=== PATIENT | female | born 1990 | race Caucasian/White ===

== ENCOUNTER → 2019-10-27 10:04 | Observation (INO) ==
[2019-10-27 08:20] LABS: Amphetamine Screen,Urine Negative ng/mL (Cutoff=1000); Barbiturate Screen,Urine Negative ng/mL (Cutoff=200); Benzodiazepines Screen,Urine Negative ng/mL (Cutoff=200); Cannabinoid Screen,Urine Negative ng/mL (Cutoff = 50); Cocaine Screen,Urine Negative ng/mL (Cutoff= 300); Opiate Screen,Urine Negative ng/mL (Cutoff=300); Phencyclidine Screen,Urine Negative ng/mL (Cutoff=25)
== END | disposition home or self-care (01) ==
LOC: 1NENULAB
PROVIDERS: ADMIT Advanced Practice Midwife; ATTEND Advanced Practice Midwife

== ENCOUNTER 2019-11-07 12:00 | Inpatient (IN) ==
[2019-11-07] MEDS ORDERED: Ondansetron 4 MG/2 ML VIAL IVP PRN (12:08)
[2019-11-07] MEDS ORDERED: Naloxone 0.4 MG/ML INJ IVP PRN (12:08)
[2019-11-07] MEDS ORDERED: Famotidine 20 MG/2 ML VIAL IVP PRN (12:08)
[2019-11-07] MEDS ORDERED: Metoclopramide 10 MG/2 ML VIAL IVP PRN (12:08)
[2019-11-07] MEDS ORDERED: Penicillin G Potassium 5,000,000 UNIT in 0.9 % Sodium Chloride Mini Bag 100 ML IVPB ONE (12:18)
[2019-11-07] MEDS: miSOPROStoL 25 MCG TABLET PO SCH (13:54)
[2019-11-07] MEDS: Ringers Solution, Lactated 1,000 ML IVC SCH ×2 (13:55→22:26)
[2019-11-07 14:06] LABS: Basophils % 0.3 %; Eosinophils # 0.2 K/mcL (0.0-0.6); Eosinophils % 1.8 %; Hematocrit 33.7 % (35.3-44.9); Hemoglobin 11.1 g/dL (11.5-15.4); Immature Granulocytes % 0.6 % (0-4); Lymphocytes # 1.6 K/mcL (0.6-4.6); Lymphocytes % 17.9 %; Mean Corpuscular HGB Conc 32.9 g/dL (31.6-35.5); Mean Corpuscular Hemoglobin 29.3 pg (28.0-33.3); Mean Corpuscular Volume 88.9 fL (83.0-100.0); Mean Platelet Volume 9.5 fL (9.4-12.4); Monocytes # 0.7 K/mcL (0.0-1.3); Monocytes % 7.7 %; Neutrophils # 6.3 K/mcL (1.6-8.9); Platelet Count 260 K/mcL (140-400); Red Blood Count 3.79 M/mcL (3.82-4.97); Red Cell Distribution Width 13.2 % (11.5-14.5); Segmented Neutrophils % 71.7 %; White Blood Count 8.8 K/mcL (4.3-11.1)
[2019-11-07] MEDS: Penicillin G Potassium 2,500,000 UNIT in 0.9 % Sodium Chloride 100 ML IVPB SCH ×2 (18:20→22:29)
[2019-11-07] MEDS ORDERED: Oxytocin 20 units/ LR 1000 mL 20 UNIT/1,000 ML BAG IVC SCH (18:45)
[2019-11-07] MEDS ORDERED: Epidural Premix (fent/bupiv) 110 ML EP ONE (21:38)
[2019-11-07] MEDS ORDERED: Epidural Premix (fent/bupiv) 110 ML EP SCH (21:45)
[2019-11-07] MEDS ORDERED: *HR* FentaNYL (PF) 100 MCG/2 ML VIAL ONE (22:38)
[2019-11-07] MEDS ORDERED: *HR* Ropivacaine/PF 0.5% 20 ML VIAL ONE (22:58)
[2019-11-07] MEDS ORDERED: Lidocaine 1% 20 ML MDV INFILT ONE (23:59)
[2019-11-08] MEDS ORDERED: Lidocaine 1% 20 ML MDV ONE (00:06)
[2019-11-08] MEDS: *HR* HYDROcodone/Acet 5/325 mg TABLET PO STA ×2 (00:47→11:35)
[2019-11-08] MEDS ORDERED: Measles/Mumps/Rubella Vacc 0.5 ML VIAL SQ PRN (01:21)
[2019-11-08] MEDS ORDERED: Lanolin 7 G OINT...G. TP PRN (01:21)
[2019-11-08] MEDS ORDERED: Oxytocin 20 units/ LR 1000 mL 20 UNIT/1,000 ML BAG IVC SCH (01:21)
[2019-11-08] MEDS ORDERED: *HR* HYDROcodone/Acet 5/325 mg TABLET PO PRN (01:21)
[2019-11-08] MEDS ORDERED: Acetaminophen 325 MG TABLET PO PRN (01:21)
[2019-11-08] MEDS ORDERED: Benzocaine/Menthol 56 GM AEROSOL SPRAY TP PRN (01:21)
[2019-11-08] MEDS: Ibuprofen 600 MG TABLET PO PRN ×4 (02:50→22:26)
[2019-11-08] MEDS: Prenatal Vit/FA 1 EACH TABLET PO SCH (08:31)
[2019-11-09] MEDS: Ibuprofen 600 MG TABLET PO PRN ×2 (05:13→13:52)
[2019-11-09] MEDS: miSOPROStoL 25 MCG TABLET PO SCH (07:39)
[2019-11-09 08:44] VITALS: BP 119/76
[2019-11-09] MEDS: Prenatal Vit/FA 1 EACH TABLET PO SCH (08:48)
== END 2019-11-09 15:49 | disposition home or self-care (01) | DRG 807 ==
LOC: 1NENULAB 12:05 → 1NENUOBS 11-08 02:48
PROVIDERS: ADMIT Advanced Practice Midwife; ATTEND Advanced Practice Midwife

== ENCOUNTER → 2020-12-03 12:45 | Observation (INO) ==
[2020-12-03 11:14] LABS: Bilirubin,Urine Negative (Negative); Blood,Urine Negative (Negative); Clarity,Urine Clear (Clear); Color,Urine Light-Yellow (Yellow); Glucose,Urine (UA) Normal (Normal); Ketones,Urine Negative (Negative); Leukocyte Esterase,Urine Negative (Negative); Nitrite,Urine Negative (Negative); Protein,Urine Negative (Neg-Trace); Specific Gravity,Urine 1.006 (1.010-1.025); Urobilinogen,Urine Normal (Normal)
== END | disposition home or self-care (01) ==
LOC: 1NENULAB
PROVIDERS: ADMIT Advanced Practice Midwife; ATTEND Advanced Practice Midwife

== ENCOUNTER 2020-12-07 19:06 | Inpatient (IN) ==
[2020-12-07] MEDS ORDERED: Famotidine 20 MG/2 ML VIAL IVP PRN (19:50)
[2020-12-07] MEDS ORDERED: Lidocaine 1% 20 ML MDV INFILT PRN (19:50)
[2020-12-07] MEDS ORDERED: Ondansetron 4 MG/2 ML VIAL IVP PRN (19:50)
[2020-12-07] MEDS ORDERED: Naloxone 0.4 MG/ML INJ IVP PRN (19:50)
[2020-12-07] MEDS ORDERED: Metoclopramide 10 MG/2 ML VIAL IVP PRN (19:50)
[2020-12-07] MEDS ORDERED: *HR* Nalbuphine 10 MG/ML AMPUL IV PRN (19:50)
[2020-12-07] MEDS ORDERED: Ringers Solution, Lactated 1,000 ML IVC SCH (20:00)
[2020-12-07] MEDS ORDERED: miSOPROStoL 25 MCG TABLET VG PRN (20:30)
[2020-12-07] MEDS ORDERED: Oxytocin 20 units/ LR 1000 mL 20 UNIT/1,000 ML BAG IVC SCH (20:30)
[2020-12-07] MEDS ORDERED: Lidocaine -MPF 2% 5 ML VIAL ONE (21:18)
[2020-12-07] MEDS ORDERED: Bupivacaine-MPF 0.25% 10 ML VIAL EP ONE (21:39)
[2020-12-07] MEDS ORDERED: EPHEDrine 50 MG/ML VIAL IVP PRN (21:39)
[2020-12-07] MEDS ORDERED: *HR* FentaNYL (PF) 100 MCG/2 ML VIAL EP ONE (21:39)
[2020-12-07] MEDS ORDERED: Epidural Premix (fent/bupiv) 110 ML EP SCH (21:45)
[2020-12-07 21:54] LABS: Basophils % 0.3 %; Eosinophils # 0.2 K/mcL (0.0-0.6); Eosinophils % 1.9 %; Hematocrit 39.9 % (35.3-44.9); Hemoglobin 13.3 g/dL (11.5-15.4); Immature Granulocytes % 0.3 % (0-4); Lymphocytes # 2.2 K/mcL (0.6-4.6); Lymphocytes % 22.6 %; Mean Corpuscular HGB Conc 33.3 g/dL (31.6-35.5); Mean Corpuscular Hemoglobin 29.4 pg (28.0-33.3); Mean Corpuscular Volume 88.1 fL (83.0-100.0); Mean Platelet Volume 9.6 fL (9.4-12.4); Monocytes # 0.8 K/mcL (0.0-1.3); Monocytes % 8.4 %; Neutrophils # 6.5 K/mcL (1.6-8.9); Platelet Count 304 K/mcL (140-400); Red Blood Count 4.53 M/mcL (3.82-4.97); Red Cell Distribution Width 12.9 % (11.5-14.5); Segmented Neutrophils % 66.5 %; White Blood Count 9.8 K/mcL (4.3-11.1)
[2020-12-07 22:29] LABS: Influenza A PCR Negative (Negative); Influenza B PCR Negative (Negative); Resp. Syncytial Virus PCR Negative (Negative)
[2020-12-07 22:30] LABS: SARS-CoV-2 by PCR (In House) Negative (Negative)
[2020-12-07 23:20] LABS: Amphetamine Screen,Urine Negative ng/mL (Cutoff=1000); Barbiturate Screen,Urine Negative ng/mL (Cutoff=200); Benzodiazepines Screen,Urine Negative ng/mL (Cutoff=200); Cannabinoid Screen,Urine Negative ng/mL (Cutoff = 50); Cocaine Screen,Urine Negative ng/mL (Cutoff= 300); Opiate Screen,Urine Negative ng/mL (Cutoff=300); Phencyclidine Screen,Urine Negative ng/mL (Cutoff=25)
[2020-12-08] MEDS ORDERED: Lanolin 7 G OINT...G. TP PRN (08:49)
[2020-12-08] MEDS ORDERED: Measles/Mumps/Rubella Vacc 0.5 ML VIAL SQ PRN (08:49)
[2020-12-08] MEDS ORDERED: Benzocaine/Menthol 56 GM AEROSOL SPRAY TP PRN (08:49)
[2020-12-08] MEDS ORDERED: Oxytocin 20 units/ LR 1000 mL 20 UNIT/1,000 ML BAG IVC SCH (08:49)
[2020-12-08] MEDS: Ibuprofen 600 MG TABLET PO PRN ×2 (15:43→22:10)
[2020-12-08] MEDS: Prenatal Vit/FA 1 EACH TABLET PO SCH (15:45)
[2020-12-08] MEDS: Acetaminophen 325 MG TABLET PO PRN (19:42)
[2020-12-09] MEDS: Acetaminophen 325 MG TABLET PO PRN ×3 (01:51→14:24)
[2020-12-09] MEDS: Ibuprofen 600 MG TABLET PO PRN ×2 (03:54→11:04)
[2020-12-09] MEDS: Prenatal Vit/FA 1 EACH TABLET PO SCH (07:52)
[2020-12-09 07:57] VITALS: BP 116/83
== END 2020-12-09 17:49 | disposition home or self-care (01) | DRG 806 ==
LOC: 1NENULAB 19:06 → 1NENUOBS 12-08 10:25
PROVIDERS: ADMIT Registered Nurse; ATTEND Registered Nurse